=== PATIENT | female | born 2000 ===

== ENCOUNTER 2019-01-09 00:26 | Emergency (ER) | payer SELFPAY ==
[2019-01-09 01:18] LABS: Bilirubin Negative (Negative); Blood, Urine Negative (Negative); Clarity CLEAR (Clear); Glucose, Urine (Dipstick) Negative (Negative); Leukocyte Negative (Negative); Nitrite Negative (Negative); Protein, Urine (Dipstick) Negative (Neg-Trace); Urobilinogen 0.2 mg/dL (0.2-1.0)
[2019-01-09 01:19] LABS: Pregnancy Test - Urine (BHCG) Negative (Negative); Pregu Control Background? CLEAR/WHITE (CLR/WHITE); Pregu Control Bar Appear? YES (CONTROL BAR); Specific Gravity 1.028 (1.002-1.036)
[2019-01-09 01:24] LABS: #Basophils 0.1 thou/uL (0.0-0.2); #Eosinphils 0.2 thou/uL (0.0-0.7); #Lymphocytes 3.5 thou/uL (1.20-3.40); #Monocytes 0.7 thou/uL (0.11-0.59); #Neutrophils 7.7 thou/uL (1.40-6.50); %Basophils 0.9 % (0.0-1.0); %Lymphocytes 28.3 % (28.0-48.0); %Monocytes 5.6 % (0.0-4.0); %Neutrophils 63.3 % (31.0-61.0); Hemoglobin 11.5 g/dL (12.0-16.0); Mean Corpuscular HGB CONC 31.9 g/dL (32.0-36.0); Mean Corpuscular Hemoglobin 26.9 pg (25.0-35.0); Mean Corpuscular Volume 84.3 fL (78.0-98.0); Mean Platelet Volume 7.3 fL (7.4-10.4); Platelet Count 334 thou/uL (130-400); RBC Distribution Width 13.8 % (11.5-14.5); Red Blood Cell (RBC) Count 4.28 mill/uL (4.00-5.20); White Blood Cell (WBC) Count 12.2 thou/uL (4.8-10.8)
[2019-01-09 01:43] LABS: ALT (SGPT) 12 U/L (8-55); AST (SGOT) 13 U/L (5-34); Albumin 3.9 g/dL (3.5-5.0); Alkaline Phosphatase 102 U/L (40-150); Anion Gap 11 mmol/L (10-20); BUN (Urea Nitrogen) 13 mg/dL (7.0-18.7); Bilirubin, Total 0.2 mg/dL (0.2-1.2); Calc. Creatinine Clearance 0 mL/min (70-130); Calcium 9.7 mg/dL (7.8-10.44); Carbon Dioxide 26 mmol/L (22-29); Chloride 106 mmol/L (98-107); Estimated GFR-MDRD Greater than 90; Globulin 3.8 g/dL (2.4-3.5); Glucose 94 mg/dL (70-105); Potassium 3.9 mmol/L (3.5-5.1); Protein, Total 7.7 g/dL (6.0-8.3); Sodium 139 mmol/L (136-145)
[2019-01-09] MEDS ORDERED: Ketorolac Tromethamine 60 MG/2 ML VIAL ONE (03:29)
--- NOTE | 2019-01-09 11:03 | ULT ---
PRELIMINARY REPORT/[facility]/EMERGENCY AFTER HOURS PROCEDURE: EXAM: US Duplex Artery and Vein of the Abdominal and/or Reproductive Organs. Complete Ovaries EXAM DATE/TIME: 01/09/2019 1:32 AM CLINICAL HISTORY: 18 years old, female; Other: Rlq pain TECHNIQUE: Imaging protocol: Real-time duplex ultrasound scan of the arterial and venous flow with color Doppler flow and spectral waveform analysis. Complete duplex exam focused on the ovaries. Duplex exam was ad ded to evaluate for ovarian torsion or mass. COMPARISON: No relevant prior studies available. FINDINGS: Right adnexa: Normal duplex of the ovary. Normal Doppler waveforms and color flow. Arterial and venou s flow are normal. No evidence of ovarian torsion. Left adnexa: Normal duplex of the ovary. Normal Doppler waveforms and color flow. Arterial and venous flow are normal. No evidence of ovarian torsion. IMPRESSION: Normal ovarian arterial and venous vascular flow. No evidence ovarian torsion. EXAM: US Pelvis, Transvaginal EXAM DATE/TIME: 01/09/2019 1:32 AM CLINICAL HISTORY: 18 years old, female; Other: Rlq pain TECHNIQUE: Imaging protocol: Real-time transvaginal pelvic ultrasound with image documentation. Transvaginal zuleika ging was used for better evaluation of the endometrium and adnexa. COMPARISON: No relevant prior studies available. FINDINGS: Uterus/cervix: The uterus measures 6.8 x 4.7 x 5.1 cm. The uterus is anteverted. Several fibroids wer e measured, the largest 2.4 x 1.6 cm. The endometrium measures 0.8 cm. Normal appearance of the cervi x. Right adnexa: The right ovary is normal in appearance with normal flow by color Doppler and spectral waveform analysis of the arterial and venous flow. Right ovarian cyst measuring 2.3 x 1.2 cm. The rig ht ovary measures 3.2 x 2.3 x 2.3 cm. Left adnexa: The left ovary is normal in appearance with normal flow by color Doppler and spectral wa veform analysis of arterial and venous flow. No ovarian mass or abnormal cysts. The left ovary measur es 2.7 x 1.5 x 1.7 cm. Free fluid: Trace fluid in the cul-de-sac. IMPRESSION: 1. Multi-fibroid uterus. 2. No ovarian mass or evidence of torsion. 3. Right ovarian 2.3 cm cyst versus dominant follicle. 4. Trace free fluid in the pelvis, likely physiologic fluid. Thank you for allowing us to participate in the care of your patient. Dictated and Authenticated by: Tena Kidd MD 01/09/2019 3:11 AM Central Time ([place] & [place]) FINAL REPORT PELVIC ULTRASOUND: Date: 01/09/19 HISTORY: Right lower quadrant pelvic pain. FINDINGS: Real-time imaging of the pelvis was performed with an endovaginal probe. This shows a uterus measurin g 4.7 x 5.0 x 6.8 cm. Several fibroids are identified. The largest of these is 2.4 cm. The right and left adnexa are well visualized and normal appearance. There are small follicles with s lightly irregularly shaped follicle within the right adnexa which would indicate the possibility that this is ruptured. This follicle measures 1.0 x 1.6 cm. DOPPLER EVALUATION WITH SPECTRAL ANALYSIS: Normal flow shown to both adnexa. Endometrium is slightly thickened at 8 mm. IMPRESSION: Small, irregularly shaped follicle involving the right adnexa, probably a ruptured follicle. There is trace free fluid present. This report is in agreement with the preliminary report issued by [facility]. POS: [facility]INE
== END 2019-01-09 04:01 | disposition home or self-care (01) ==
LOC: ERS 00:26
DX: N83.201 Unspecified ovarian cyst, right side (principal); F32.9 Major depressive disorder, single episode, unspecified; F41.9 Anxiety disorder, unspecified; Z79.899 Other long term (current) drug therapy
CPT/HCPCS: 36415; 76856; 80053; 81003; 81025; 85025; 96372; J1885